=== PATIENT | male | born 2000 | race Caucasian/White ===

== ENCOUNTER 2022-06-14 16:44 | Emergency (ER) | payer MEDICAID, SELFPAY ==
[2022-06-14 17:23] VITALS: PULSE 95; RESP 16; TEMP 36.7; O2SAT 99; BMI 21.2
--- NOTE | 2022-06-14 17:23 | XRR_ITS ---
PROCEDURE INFORMATION: Exam: XR Right Hand Exam date and time: 06/14/2022 5:38 PM Age: 21 years old Clinical indication: Injury or trauma; Finger; Injury details: PT got his hand caught in a router. PT has small laceration to right thumb. ; Additional info: Injury, laceration TECHNIQUE: Imaging protocol: Radiologic exam of the Right hand. Views: 3 or more views. COMPARISON: No relevant prior studies available. FINDINGS: Bones/joints: Minimally displaced fracture suspected within the terminal tuft of the thumb distal phalanx. The other bones are intact. Soft tissues: Soft tissue laceration in the tip of the thumb. No foreign body visualized. XR/XR hand RT min 3V* [id number] IMPRESSION: 1. Suspected minimally displaced fracture in the terminal tuft of the thumb distal phalanx.
--- NOTE | 2022-06-14 17:32 | ED_ITS ---
HPI - Extremity Problem General: Chief complaint: Extremity Injury, Upper Stated complaint: Right hand lac with woodworking machine feeder Time Seen by Provider: 06/14/22 17:32 History of Present Illness: 21-year-old male patient comes in today for complaints of injury to the distal right thumb. 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 Patient accidentally got his finger caught in a woodworking machine feeder. Patient has obvious damage to the distal thumbnail and finger pad. Tetanus is not up-to-date. Patient appears nontoxic. Associated symptoms: Deny chest pain or fever(s) Review of Systems Const: Denies: fever(s) Card: Denies: chest pain Resp: Denies: dyspnea GI: Denies: abdominal pain : Denies: flank pain Musc: Reports: extremity pain Skin/Breast: Reports: new lesions Physical Exam Const: COMMON NORMALS: alert HENMT: COMMON NORMALS: atraumatic HEAD & SCALP: atraumatic Neck/C-Spine: COMMON NORMALS: full ROM Resp: COMMON NORMALS: normal respiratory effort Cardio: COMMON NORMALS: regular rate RATE: regular rate Back/Pelvis: COMMON NORMALS: thoracic and lumbar spine normal to inspection Extremity: RIGHT UPPER EXTREMITY: Yes hand & digits (Irregular laceration and distal thumb with nail involvement.) Neuro: SENSORIUM/ORIENTATION: Yes alert Skin: TRAUMA: laceration (Distal right thumb) irregular Procedures Laceration Laceration 1: Site: hand (Right thumb) Side (If applicable): right Size (cm): 3 Description: irregular Depth: simple, single layer Local Anesthetic: bupivacaine 0.5% Amount of anesthesia used (mL): 3 Pre-repair: wound explored and irrigated extensively Skin layer closed with: nylon Size (cm): 4-0 Number of sutures: 6 Technique: simple, interrupted Course Vital Signs: Vital signs: Vital Signs Temperature 98.0 F 06/14/22 18:50 Pulse Rate 91 06/14/22 18:50 Respiratory Rate 15 06/14/22 18:50 Blood Pressure 135/83 06/14/22 18:50 Pulse Oximetry 99 06/14/22 18:50 Oxygen Delivery Me thod 06/14/22 17:23 MDM - Extremity (Nontraumatic) Medical Decision Making Patient comes in today with a injury to the distal right thumb. On exam patient has irregular laceration to the distal right thumb. Cap refill is intact. Nail is torn down the middle. Normal range of motion of the finger is noted. Normal tendon function is noted. Differential diagnosis includes fracture, laceration, foreign body. X-ray of the finger noted no foreign body he did have a nondisplaced tuft fracture. Wound was repaired with 6 sutures of 4-0 Ethilon. Nail plate was secured with skin adhesive. Reviewed exam with patient and family with recommendations for treatment and follow-up. Patient's tetanus was updated. Patient was placed on cephalexin 500 mg 3 times a day for the next 7 days. Family and patient both reported understanding agreed to plan. Lab Data Radiology Impressions Hand X-Ray 06/14/22 17:23 IMPRESSION: 1. Suspected minimally displaced fracture in the terminal tuft of the thumb distal phalanx. Discharge Plan Discharge Patient Disposition: Home Clinical Impression: Open fracture of tuft of distal phalanx of finger Laceration of thumb, right Qualifiers: Encounter type: initial encounter Damage to nail status: with damage Foreign body presence: without foreign body Qualified Code(s): S61.111A - Laceration without foreign body of right thumb with damage to nail, initial encounter Condition: Stable Prescriptions: New hydrocodone-acetaminophen 5-325 mg tablet 1 tab PO Q8H PRN (Reason: pain (scale score 7-10)) Qty: 6 0RF cephalexin 500 mg capsule 500 mg PO TID 7 Days Qty: 21 0RF Discharge Orders: Discharge ED (Routine); Ordered 06/14/22 Ordered By: Jeramie King Discharge Diet: Usual diet Discharge Activity: Increase activity as tolerated Patient Instructions: Finger Laceration (ED), Opioid Safety Activity Restrictions/Additional Instructions: Keep finger clean and dry. It is important keep the wound as dry and clean as possible especially for the next 48 hours. You may wear a glove to protect it. Take antibiotic cephalexin 500 mg 3 times a day for the next 7 days. Follow-up with primary care in 1 week for evaluation and and continue treatment. Sutures should come out in 7 to 10 days. Return to ER for high fever greater than 100.4, uncontrolled pain, or new concerns. Coding Level of Care Code ED Supervisor Color Paste Mixing for Stacey Ryan
[2022-06-14] MEDS: cephALEXin 500 mg Capsule PO (18:34)
[2022-06-14] MEDS: tetanus-dipt-pertussis 0.5 mL SDV IM (18:35)
[2022-06-14 18:50] VITALS: BP 135/83; PULSE 91; RESP 15; TEMP 36.7; O2SAT 99
--- NOTE | 2022-06-23 12:15 | PC.NURSE ---
8 sutures removed by web marketing manager jo ann thomason
--- NOTE | 2022-06-23 12:36 | W.ED.EXTPRO ---
HPI - Extremity Problem General: Chief complaint: Extremity Injury, Upper Stated complaint: Right hand lac with wood heel fitter machine Time Seen by Provider: 06/14/22 17:32 History of Present Illness: This is an addendum to patient's original visit seen by Leonardo King for finger laceration. [facility] ED PFSH: Medical History (Updated 07/01/22 @ 11:41 by Curry Levine DO) Nailbed injury Course Vital Signs: Vital signs: Vital Signs Temperature 98.0 F 06/14/22 18:50 Pulse Rate 91 06/14/22 18:50 Respiratory Rate 15 06/14/22 18:50 Blood Pressure 135/83 06/14/22 18:50 Pulse Oximetry 99 06/14/22 18:50 Oxygen Delivery Me thod 06/14/22 17:23 MDM - Extremity (Nontraumatic) Medical Decision Making This was meant to be an addendum chart to the original chart by Leonardo King. A duplicate chart was created. Please see below in the discharge for what was done today. Lab Data Radiology Impressions Hand X-Ray 06/14/22 17:23 IMPRESSION: 1. Suspected minimally displaced fracture in the terminal tuft of the thumb distal phalanx. Discharge Plan Discharge Patient Disposition: Home Clinical Impression: Laceration of thumb, right, Open fracture of tuft of distal phalanx of finger Condition: Stable Discharge Orders: Discharge ED (Routine); Ordered 06/14/22 Ordered By: Jeramie King Discharge Diet: Usual diet Discharge Activity: Increase activity as tolerated Activity Restrictions/Additional Instructions: Keep finger clean and dry. It is important keep the wound as dry and clean as possible especially for the next 48 hours. You may wear a glove to protect it. Take antibiotic cephalexin 500 mg 3 times a day for the next 7 days. Follow-up with primary care in 1 week for evaluation and and continue treatment. Sutures should come out in 7 to 10 days. Return to ER for high fever greater than 100.4, uncontrolled pain, or new concerns. Patient was in today for suture removal; however, I nursing staff was having difficulty removing sutures. I, Aubrie Fong, was called in to assist. Sutures were crusted in glue and scabbing. 8 sutures were removed. Pus drainage noted to the wound and the thumb is slightly erythematous. Patient has finished Keflex antibiotic. Given that patient had open fracture I will start him on clindamycin today. Advised him to keep the wound clean and dry. Dressed the wound with triple antibiotic which will help with dissolving Dermabond. I will go ahead and refer patient to Dr. Levine and order case management referral to help patient establish with primary care provider. Strict return instructions given to patient to return to ER for any new or worsening symptoms, worsening redness, increased pain, increased purulent drainage from the wound, fever, chills. Coding Level of Care Code ED Bindery Machine Feeder Offbearer for Stacey Ryan
--- NOTE | 2022-06-23 16:05 | DCPLANNER ---
Addendum entered by Jo Lim 07/05/22 13:58: Patient had a follow up appointment scheduled for 06.28.[address] Levine at ortho - patient did attend appointment. Original Note: assistant front office manager had message to schedule a follow up appointment for patient with ortho. assistant front office manager sent patients information to the front office staff at ortho. Patients information will be printed and reviewed. Clinic will call patient with appointment information.
== END 2022-06-14 18:52 | disposition home or self-care (01) ==
PROVIDERS: Emergency Provider Nurse Practitioner Family
DX: S62.521B Displaced fracture of distal phalanx of right thumb, initial encounter for open fracture (principal); W31.82XA Contact with other commercial machinery, initial encounter; Y99.0 Civilian activity done for income or pay; Z23 Encounter for immunization
CPT/HCPCS: 12002; 73130; 90471; 90715; 99284; J3490

== ENCOUNTER → 2022-06-28 10:36 | Outpatient (BNVA) | payer MEDICAID, SELFPAY | PROVIDERS: Referring Provider Nurse Practitioner Family; Visit Provider Student in an Organized Health Care Education/Training Program | DX: S62.521B Displaced fracture of distal phalanx of right thumb, initial encounter for open fracture (principal); W31.89XA Contact with other specified machinery, initial encounter | CPT/HCPCS: 73130 ==

== ENCOUNTER 2022-07-01 10:18 | Day surgery (SDC) | payer MEDICAID, SELFPAY ==
[2022-06-30 08:18] VITALS: BMI 22.8
[2022-07-01] MEDS: ketorolac 30 mg/mL INJ IVP (11:02)
[2022-07-01] MEDS: sodium chloride 0.9% 1,000 ML 30 ML IV (11:02)
[2022-07-01] MEDS: acetaminophen 1,000 MG/100 ML PIGGYBACK 400 MG IV (11:02)
[2022-07-01 11:07] VITALS: BP 137/92; PULSE 91; RESP 18; TEMP 36.9; O2SAT 98
--- NOTE | 2022-07-01 11:07 | ANES.PREANE2 ---
Pre-Anesthetic Assessment Height/Weight: Height 1.73 m Weight 68.039 kg O2 Del Method 07/01/22 11:06 Preop Diagnosis: Right thumb infection with nailbed injury Operation Date: 07/01/22 14:10 Proposed Procedures p Right thumb irrigation and debridement 81184,nail plate removal 63778, nail bed repair 09955 S61.309A,S61.111A,B35.1(Right) - Curry [place], DO s Nail Plate Removal(Right) - Curry [place], DO s Nail Bed Repair(Right) - Curry [place], DO Familial anesthetic complications: None Was Beta Loreta taken within 24 hours: N/A Was Clonidine taken within 24 hours: N/A Last intake: Intake Last Liquid Date 06/30/22 Last Liquid Time 20:30 Last Solid Date 06/30/22 Last Solid Time 20:30 Social No alcohol and No tobacco Exam alert, oriented x 3, clear to auscultation bilaterally and regular rate & rhythm Airway Mallampati: Class I Dentition: full Anesthetic Plan ASA status: 1 Anesthesia: MAC Risk of > 500 ml blood loss (7ml/kg in children): No Medications/Allergies Home Medications Medication Instructions Recorded Confirmed Last Taken Type No Known Home Medications 06/30/22 06/30/22 Unknown History Allergies Allergy/AdvReac Type Severity Reaction Status Date / Time No Known Allergies Allergy Unverified 06/28/22 10:34 Current Medications Generic Name Dose Route Start Last Admin Trade Name Freq PRN Reason Stop Dose Admin Sodium Chloride 1,000 mls @ 30 mls/hr 07/01/22 10:30 07/01/22 11:02 Sodium Chloride 0.9% IV 07/02/22 10:29 30 mls/hr .Q24H JOSE ANGEL Administration Data Anesthesia Cardiac Studies: No Data to Display
[2022-07-01] MEDS: ceFAZolin 2,000 MG in sodium chloride 0.9% (plus) 50 ML 100 MG IV (11:30)
--- NOTE | 2022-07-01 11:37 | W.PM.OPSUD ---
Surgery/Procedure H&P Update DATE OF PROCEDURE: July 01, 2022 DATE H&P PERFORMED: 06/28/22 CHANGES TO PREVIOUS DOCUMENTATION: None PREOP DIAGNOSIS: Right thumb infection with nailbed injury PRIMARY INDICATION FOR PROCEDURE: Right thumb infection with nailbed injury secondary to laceration PLANNED PROCEDURE: Operation Date: 07/01/22 14:10 Proposed Procedures p Right thumb irrigation and debridement 52531,nail plate removal 62071, nail bed repair 34243 S61.309A,S61.111A,B35.1(Right) - DO danny Cristina Nail Plate Removal(Right) - DO danny Cristina Nail Bed Repair(Right) - Curry Levine DO
[2022-07-01] MEDS: lidocaine 1% INJ 20 mL 6 ML INJECTION (12:05)
[2022-07-01 12:33] VITALS: BP 103/56; PULSE 69; RESP 17; TEMP 36.3; O2SAT 98
[2022-07-01 12:40] VITALS: BP 111/57; PULSE 73; RESP 17; O2SAT 99
[2022-07-01 12:45] VITALS: BP 119/76; PULSE 82; RESP 18; O2SAT 99
[2022-07-01 12:49] VITALS: BP 132/79; PULSE 73; RESP 18; TEMP 36.2; O2SAT 100
--- NOTE | 2022-07-01 13:02 | ANE.PACU2 ---
Inpatient post-anesthesia follow up: Airway intact: Yes Vital signs: Temperature 97.1 F Pulse Rate 73 Respiratory Rate 18 Blood Pressure 132/79 Pulse Oximetry 100 Oxygen Delivery Me thod Room Air Oxygen Flow Rate 10 Fraction of Inspir ed Oxygen Hydration adequate: Yes Nausea and vomiting: No Pain level: 1 Mental status: Baseline
[2022-07-01 13:09] VITALS: BP 136/88; PULSE 78; RESP 18; O2SAT 96
--- NOTE | 2022-07-01 15:15 | P.OP_ITS ---
Brief Operative Note Date of procedure: 07/01/22 Pre-op diagnosis: Right thumb infection and nailbed injury Post-op diagnosis: same Procedure Done: Right thumb irrigation and debridement with nail plate removal and nailbed repair Surgeon: Curry Levine Estimated blood loss (mL): 1 Complications: None Post-op Plan: Patient taken to PACU in stable condition. Dressing on in place clean dry and intact receive appropriate discharge instruction as well as pain medication and postoperative antibiotics. We will see him in the office in 2 weeks. Patient understands and agrees with current plan. All questions answered. Condition: stable Coding Level of Care Code Acute Technical Operator for Stacey Ryan
--- NOTE | 2022-07-01 15:17 | PM.PACU ---
PACU note Narrative: Patient seen evaluated in PACU recovering well pain controlled. Dressing on in place and is clean dry and intact. He is able to wiggle fingers. Full examination limited secondary to bulky dressing. Exam: awake Disposition: discharged
--- NOTE | 2022-07-05 20:08 | PM.PACU ---
PACU note Narrative: Patient taken to PACU in stable condition. Dressing on in place clean dry and intact. Dressing limits examination. He is able to wiggle his fingers Exam: awake Disposition: discharged
--- NOTE | 2022-07-05 20:12 | P.OP_ITS ---
Operative Report Date of procedure: July 01, 2022 Pre-op diagnosis: Preop Diagnosis Right thumb infection with nailbed injury Post-op diagnosis: Same Procedure done: Right thumb irrigation and debridement Right thumb nail plate removal Right thumb nailbed repair Surgeon: Curry Levine DO Estimated blood loss: 1mL Finger turnicot 11 minutes IV fluids: See anesthesia record Complications: None Findings: See operative report narrative Condition: stable Disposition: same day Brief History: Patient is a pleasant 21-year-old male who sustained a injury to his right thumb. Patient sustained a crush injury to the right thumb. He had a small f laceration at the pulp distally. He has multiple longitudinal splits and loose nail plate. He was initially seen evaluate in the emergency department. He was sutured closed as well as glued. This point time when he went to change his dressing he noticed significant erythema about the site. He was then brought back to the emergency department the glue was attempted to be removed however there was concerns for infection given antibiotics and sent to my office for evaluation. On my evaluation his nail plate is consistent with likely a nailbed injury underneath the nail plate. Given the glue there I think is a sealed environment that night needs to be unroofed of the pulp of the right thumb. There is erythema around the site. No expressible purulence was noted slight drainage appreciated. After detailed discussion with patient through shared decision making we agreed to proceed with a right thumb irrigation debridement with nail plate removal and nailbed repair. He understands the risk benefits complication alternatives surgical nonsurgical treatment options. Ultimately given 2 visits to the ER local erythema as well as concern for nailbed injury would like to proceed with surgical intervention. All questions answered. Consent obtained in the office. Procedure: Patient presented to the preoperative holding area. He was seen evaluated by myself. Consent was reviewed with patient. Correct extremity was then marked. Patient was then evaluated by anesthesia department. Once ready for surgery was taken back to the operative suite. He was placed on an OR table with the right upper extremity on a hand table. All bony prominences well-padded patient was appropriately secured to the bed. He subsequently underwent anesthesia per the anesthesia department. His right upper extremity was then prepped and draped in sterile orthopedic fashion. Patient received appropriate preoperative antibiotics. Final timeout performed. Prior to surgery under sterile aseptic technique local digital block was performed of the right thumb. Once appropriately anesthetized and confirmed with anesthesia I then placed a right thumb turnicot for hemostasis. At this point time I utilized bluntly hemostat to remove all excess glue along the finger pulp. This had beefy granulation tissue underneath this was probed and there was no deep loculations of any purulence noted. I debrided all the ne crotic edges of skin subcutaneous tissue and fat. I then thoroughly irrigated this area. There was no significant skin flap I feel as though this would heal through secondary intention by just granulating with daily dressing changes. This was then subsequently left alone and turned my attention towards the nailbed. I utilized a Maryneal to mobilize the nail plate. The nail plate was then removed with hemostat. I then looked under the neck eponychium and there is no damage to the germinal matrix. Patient had 2 lacerations throughout the sterile matrix of the nail bed. I then utilized 5-0 chromic suture and sequentially performed my nail bed repair. Once this was done the wound bed was thoroughly irrigated. I then removed the tournicot. I subsequently sutured the foil wrapping from the chromic suture and sutured this underneath the eponychial fold. I then placed Xeroform Vaseline gauze over the distal tip of the finger pulp as well as along the nailbed repair. I then covered the finger with 4 x 4's Vlad wrap Curlex as well as Albino wrap for a bulky soft dressing around the right thumb. Patient was then awakened from anesthesia and taken to PACU in stable condition. Patient tolerated procedure without complications. Disposition: Patient taken to PACU in stable condition receive appropriate discharge instructions as well as dressing changes and pain medication postoper atively. We will see him back in 2 weeks to see how he is doing. Patient understands agrees with current plan. All questions answered. Patient will receive appropriate discharge antibiotics.
== END 2022-07-01 13:32 | disposition home or self-care (01) ==
PROVIDERS: Visit Provider Student in an Organized Health Care Education/Training Program
PROC: (CPT 11044; principal; 2022-07-01 14:00)
PROC: (CPT 11730; 2022-07-01 14:00)
PROC: (CPT 11760; 2022-07-01 14:00)
DX: S61.111A Laceration without foreign body of right thumb with damage to nail, initial encounter (principal); W22.8XXA Striking against or struck by other objects, initial encounter
CPT/HCPCS: 11044; 11730; 11760; J0131; J0690; J1885; J2250; J2704; J2795; J3010; J7030